=== PATIENT | male | born 1970 | race Caucasian/White ===

== ENCOUNTER 2017-05-27 07:31 | Observation (INO) | payer MEDICAID ==
[2017-05-27 08:11] LABS: Hematocrit 49.5 % (42.0-52.0); Hemoglobin 17.1 gm/dL (13.5-18.0); Mean Cell Volume 81.1 fl (78-100); Mean Corpuscular Hgb Conc 34.5 g/dl (32-36); Mean Platelet Volume 10.9 fl (6.0-9.5); Platelet Count 122 K/mm3 (150-450); White Blood Count 19.9 K/mm3 (4.0-10.5)
--- NOTE | 2017-05-27 08:15 | ERNOTE ---
Abdominal HPI - General Chief Complaint: Abdominal Pain Time Seen by Provider: 05/27/17 08:00 Source: patient Exam Limitations: no limitations - Immun/Allergies/Home Medications Immunizatons: IMMUNIZATION HX Immunizations Up to Date Yes History of Influenza Vaccine Yes Hx Pneumococcal Vaccination Yes Allergies/Adverse Reactions: Allergies Penicillins Allergy (Verified 05/27/17 07:45) venom-honey bee [bee venom (honey bee)] Allergy (Verified 05/27/17 07:45) Home Medications: HOME MEDICATIONS Metoprolol Succinate [Toprol Xl] 100 mg PO DAILY 07/20/15 [Last Taken Unknown] ALPRAZolam [Xanax] 0.5 mg PO BID 05/24/17 [Last Taken Unknown] Diclofenac Sodium 75 mg PO BID 05/24/17 [Last Taken Unknown] Acetaminophen [Tylenol] 1,000 mg PO Q6H PRN 05/27/17 [Last Taken Unknown] busPIRone HCL [Buspar] 10 mg PO BID 05/27/17 [Last Taken Unknown] - History of Present Illness Narrative: Patient presents right upper quadrant abdominal pain with nausea. She had the pain intermittently for some time and is beginning worse over the past week perhaps. He rates the pain as moderate in severity and perhaps 7 on a scale of 1-10. Timing: constant, intermittent Quality: moderate Activities at Onset: none Modifying Factors - (Worsens): Present: eating Associated Symptoms: Present: nausea Prior Abdominal Problems: Present: none Prior Treatment: Present: recently seen Review of Systems - Review of Systems Constitutional: Present: See HPI EYE: Present: no symptoms reported ENT: Present: no symptoms reported Respiratory: Present: no symptoms reported Cardiology: Present: no symptoms reported Gastrointestinal/Abdominal: Present: See HPI, nausea, abdominal pain Genitourinary: Present: no symptoms reported Musculoskeletal: Present: no symptoms reported Skin: Present: no symptoms reported Neurological: Present: no symptoms reported Endocrine: Present: no symptoms reported Hematologic/Lymphatic: Present: no symptoms reported Psych: Present: no symptoms reported - Patient's Past Medical History Patient History - Medical: ADHD, Anxiety, Other Patient History - Cardiac/Respiratory: No pertinent hx Patient History - Cancer: No Hx of Cancer Patient History - Surgical Procedures: Total Hip Replacement, Total Knee Replacement Patient History - Other: None - Family History Mother Family History - Medical: Family History - Cardiac/Respiratory: Hypertension Father Family History - Medical: Family History - Cardiac/Respiratory: History Unknown - Social History Living Situations: home Abuse History: No History of abuse Psych History: Hx of Anxiety Smoking Status: Current every day smoker Alcohol Use: occasionally Drug Use: none - Immunizations Immunizations Up to Date: Yes Hx Pneumococcal Vaccination: Yes History of Influenza Vaccine: Yes Physical Exam - Physical Exam General Appearance: Present: wd/wn, alert, moderate distress Head Exam: Present: normal inspection, no evidence of injury Eye Exam: Normal inspection: bilateral, PERRL: bilateral Ears, Nose, Throat: Present: normal ENT inspection, H, normal pharynx Neck: Present: normal inspection, nontender Respiratory: Present: no respiratory distress, normal breath sounds, no accessory muscle use, chest nontender, lungs clear Cardiovascular/Chest: Present: regular rate, rhythm, no murmur, normal peripheral pulses Gastrointestinal/Abdominal: Present: normal bowel sounds, nondistended, soft, no organomegaly, tenderness, Irby sign Rectal Exam: Present: deferred Back Exam: Present: normal inspection, normal range of motion Extremity Exam: Present: normal inspection, non-tender, no edema, normal range of motion Neurological Exam: Present: alert, oriented, normal mood/affect Skin Exam: Present: normal color, warm/dry Lymphatic Exam: Present: no adenopathy ED Progress - Results and Orders Patient's Lab Results:: I have reviewed the patient's lab results. - Vital Signs Patient's Vital Signs:: I have reviewed the patient's vital signs. Vital Signs: Vital Signs 05/27/17 05/27/17 07:39 08:13 Temperature 36.5 C Pulse Rate 101 H 72 Respiratory 16 16 Rate Blood Pressure 150/70 101/74 O2 Sat by Pulse 95 95 Oximetry - Progress/Reassessment Chief Complaint: Abdominal Pain Progress Note-Subjective: 05/27/17 08:21 Right upper quadrant abdominal ultrasound was done this morning and the results of that were reviewed by me as well. - Transfer of Care Additional Notes: Dr. Simpson was consulted and will come and examine the patient. Plan - Plan Plan: Patient be admitted to Dr. Simpson and he'll be started on IV fluids, nothing by mouth for likely surgery in the morning. Departure Clinical Impression: Cholelithiasis and acute cholecystitis without obstruction - Departure Disposition: Still a patient Condition: Fair Referrals: Viktor Wilkerson DO [Primary Care Provider] -
[2017-05-27] MEDS ORDERED: MORPHINE SULFATE 4 MG/ML SYRG IV ONE (08:19)
[2017-05-27] MEDS ORDERED: ONDANSETRON HCL/PF 2 MG/ML VIAL IV ONE (08:19)
[2017-05-27 08:25] LABS: Albumin * 2.8 gm/dl (3.4-5.0); Anion Gap 16.7 mmol/L (6.8-13.8); BUN/Creatinine Ratio 21.5 (9.0-21.6); Bilirubin, Total 1.5 mg/dL (0.0-1.1); Ca. Corrected For Albumin 9.4 mg/dL (8.4-10.2); Calcium * 8.8 mg/dL (7.9-10.9); Carbon Dioxide 24.2 mmol/L (24-32.6); Potassium 3.9 mmol/L (3.4-4.6); Total Protein 7.6 gm/dL (6.2-8.2)
[2017-05-27] MEDS ORDERED: MORPHINE SULFATE 4 MG/ML SYRG ONE (08:29)
[2017-05-27] MEDS ORDERED: ONDANSETRON HCL/PF 2 MG/ML VIAL ONE (08:29)
[2017-05-27] MEDS ORDERED: NORMAL SALINE 1,000 ML IV ONE ×4 (08:33→17:19)
[2017-05-27 08:36] LABS: Total Cells Counted 100
[2017-05-27 08:38] LABS: Basophil 1 % (0-1); Eosinophil 1 % (0-3); Lymphocyte 5 % (20-51); Monocyte 2 % (0-9); Neutrophil 91 % (42-75); Neutrophil # 18.1 K/mm3 (1.3-6.0); Platelet Estimate Normal (NORMAL); RBC Morphology Normal (NORMAL)
[2017-05-27] MEDS: NORMAL SALINE 1,000 ML IV ONE ×2 (08:45→11:03)
--- NOTE | 2017-05-27 09:59 | CONS ---
<Bandar Mosher - Last Filed: 05/27/17 10:05> HPI - History of Present Illness Allergies/Adverse Reactions: Allergies Penicillins Allergy (Verified 05/27/17 07:45) venom-honey bee [bee venom (honey bee)] Allergy (Verified 05/27/17 07:45) Home Medications: Home Medications Medication Instructions Recorded Last Taken Metoprolol Succinate [Toprol Xl] 100 mg PO DAILY 07/20/15 Unknown ALPRAZolam [Xanax] 0.5 mg PO BID 05/24/17 Unknown Diclofenac Sodium 75 mg PO BID 05/24/17 Unknown Acetaminophen [Tylenol] 1,000 mg PO Q6H PRN 05/27/17 Unknown busPIRone HCL [Buspar] 10 mg PO BID 05/27/17 Unknown Procedures APPLICATION OF SPLINT (01/22/01) EXTIRPATION OF MATTER FROM L EXT AUDITORY CANAL, VIA OPENING (03/20/17) EXTIRPATION OF MATTER FROM R EXT AUDITORY CANAL, VIA OPENING (03/20/17) INJECT STEROID (08/12/14) INJECTION INTO JOINT (08/12/14) Medications - Medications Current Medications: Current Medications Sodium Chloride (Sodium Chloride 0.9%) 1,000 mls @ 125 mls/hr IV .Q8H ONE Stop: 05/27/17 16:42 Last Admin: 05/27/17 08:45 Dose: 125 mls/hr Physical Examination - Exam Vital Signs: Vital Signs - Last Taken Temp 36.9 C 05/27/17 08:46 Pulse 82 05/27/17 09:34 Resp 16 05/27/17 09:34 BP 127/76 05/27/17 09:34 Pulse Ox 96 05/27/17 09:34 <Won Simpson - Last Filed: 05/27/17 10:55> HPI - General Date of Service: 05/27/17 Narrative: Pt presents to ER with several day history of upper abdominal pain. An ultrasound is consistent with acute cholecystitis. Positive muprhy's sign Source: patient, RN/MD, old records Exam Limitations: no limitations - Patient's Past Medical History Patient History - Medical: ADHD, Anxiety, Other Patient History - Cardiac/Respiratory: No pertinent hx Patient History - Cancer: No Hx of Cancer Patient History - Surgical Procedures: Total Hip Replacement, Total Knee Replacement Patient History - Other: None - Family History Mother Family History - Medical: Family History - Cardiac/Respiratory: Hypertension Father Family History - Medical: Family History - Cardiac/Respiratory: History Unknown - Social History Living Situations: home Abuse History: No History of abuse Psych History: Hx of Anxiety Smoking Status: Current every day smoker Alcohol Use: occasionally Drug Use: none - Immunizations Immunizations Up to Date: Yes Hx Pneumococcal Vaccination: Yes History of Influenza Vaccine: Yes Procedures APPLICATION OF SPLINT (01/22/01) EXTIRPATION OF MATTER FROM L EXT AUDITORY CANAL, VIA OPENING (03/20/17) EXTIRPATION OF MATTER FROM R EXT AUDITORY CANAL, VIA OPENING (03/20/17) INJECT STEROID (08/12/14) INJECTION INTO JOINT (08/12/14) Medications - Medications Current Medications: Current Medications Sodium Chloride (Sodium Chloride 0.9%) 1,000 mls @ 125 mls/hr IV .Q8H ONE Stop: 05/27/17 16:42 Last Admin: 05/27/17 08:45 Dose: 125 mls/hr Review of Systems - Review of Systems Abdominal: Present: Other - See HPI Physical Examination - Exam Vital Signs: Vital Signs - Last Taken Temp 36.9 C 05/27/17 08:46 Pulse 82 05/27/17 09:34 Resp 16 05/27/17 09:34 BP 127/76 05/27/17 09:34 Pulse Ox 96 05/27/17 09:34 O2 Oxygen Delivery Method Room Air Constitutional: Present: Alert, Oriented x3, Cooperative, Well developed, Well nourished, No distress, Obese ENT Exam: Present: normal ENT inspection Eye Exam: bilateral eye: normal inspection Neck: Present: full range of motion, supple, trachea midline. Absent: lymphadenopathy (R), lymphadenopathy (L) Cardiovascular/Chest: Present: regular rate, rhythm, no murmur Abdomen: Present: Normal bowel sounds, nondistended, tender - RUQ, positive Irby sign /Rectal: Present: Exam deferred Extremity: Present: normal inspection, slow capillary refill Skin Exam: Present: normal color Neurologic: Present: no motor/sensory deficits Eye contact: Present: cooperative, good eye contact - Results and Findings: Lab/Microbiology results last 24 hrs: Abnormal/Pending Laboratory Last 24 HRS 05/27/17 05/27/17 08:09 08:09 WBC 19.9 H D RBC 6.10 H RDW 18.0 H Plt Count 122 L MPV 10.9 H Neutrophils % (Manual) 91 H Lymphocytes % (Manual) 5 L Neutrophils # (Manual) 18.1 H Lymphocytes # (Manual) 1.0 L Basophils # (Manual) 0.2 H Anion Gap 16.7 H BUN 55 H D Creatinine 2.56 H D Est GFR (Non-Af Amer) 29 L D Total Bilirubin 1.5 H AST 55 H ALT 204 H Albumin 2.8 L - Assessments/Findings (1) Sepsis Diagnosis(s): A: Sepsis with multi-system failure. WBC 19K, acute renal failure, thrombocytopenia Possible choledocholithiasis with elevated bilirubin and common bile duct dilatation P: I recommend transfer to a higher level of care. Problem: Acute Qualifiers: Sepsis type: sepsis due to unspecified organism Qualified Code(s): A41.9 - Sepsis, unspecified organism (2) Thrombocytopenia Problem: Acute (3) Renal failure, acute Problem: Acute Qualifiers: Acute renal failure type: unspecified Qualified Code(s): N17.9 - Acute kidney failure, unspecified (4) Elevated bilirubin Problem: Acute (5) Choledocholithiasis with acute cholecystitis with obstruction Problem: Acute
[2017-05-27] MEDS ORDERED: LORazepam 2 MG/ML DISP.SYRIN ONE (10:45)
[2017-05-27] MEDS ORDERED: LORazepam 2 MG/ML DISP.SYRIN IV ONE (10:49)
[2017-05-27] MEDS ORDERED: NICOTINE 21 MG PATC TD ONE (11:01)
[2017-05-27] MEDS: NICOTINE 21 MG PATC TD SCH (11:02)
[2017-05-27 12:26] LABS: Urine Bilirubin 3 mg/dl (NEGATIVE); Urine Blood 50 /ul (NEGATIVE); Urine Ketone 5 mg/dL (NEGATIVE); Urine Nitrite Negative (NEGATIVE); Urine Protein 30 mg/dL (NEGATIVE); Urine Specific Gravity 1.025 SP.GR. (1.005-1.030); Urine Urobilinogen Normal (NORMAL); Urine pH 5.5 pH (5.0-7.0)
[2017-05-27 12:40] LABS: Urine Appearance Slightly Cloudy (CLEAR); Urine Color Dark Yellow; Urine RBC 0-5 /hpf (0-5); Urine WBC None Seen /hpf (0-5)
[2017-05-27 12:41] LABS: Urine Bacteria 1+; Urine Renal Epithelial Cell Few - 1+ /hpf
[2017-05-27] MEDS ORDERED: NORMAL SALINE 1,000 ML IV PRN (14:14)
[2017-05-27] MEDS ORDERED: ONDANSETRON HCL/PF 2 MG/ML VIAL IV PRN (14:14)
[2017-05-27] MEDS: HYDROmorphone HCL 2 MG/ML VIAL IV PRN ×2 (14:41→20:37)
[2017-05-27] MEDS ORDERED: LEVOFLOXACIN IN DEXTROSE 5 % 750 MG/150 ML BAG IV ONE (15:02)
--- NOTE | 2017-05-27 16:17 | HP ---
Chief Complaint - Chief Complaint Date of Service: 05/27/17 Time of Service: 16:09 Chief Complaint: abdominal pain and gallstones History of Present Illness: He started having epigastric and right upper quadrant pain suddenly on 2017. He was evaluated in the emergency room and discharged home having been scheduled for outpatient gallbladder ultrasound this morning. Those images demonstrated acute cholecystitis with cholelithiasis and he is admitted for gallbladder surgery. He has had several episodes of epigastric and right upper quadrant pain in the past but they resolved. Severe heartburn for the last several days, he is taking a lot of Pepto-Bismol and is not moving his bowels well. 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 Patient History - Cardiac/Respiratory: No pertinent hx, Hypertension Patient History - Cancer: No Hx of Cancer Patient History - Surgical Procedures: Total Hip Replacement, Total Knee Replacement Patient History - Other: None - Family History Mother Family History - Medical: Family History - Cardiac/Respiratory: Hypertension Father Family History - Medical: Family History - Cardiac/Respiratory: History Unknown - Social History Living Situations: alone Abuse History: No History of abuse Psych History: Hx of Anxiety Smoking Status: Current every day smoker Have you smoked in the past 12 months: Yes Patient requests Smoking Cessation Consult: No Initiate information on Smoking Cessation: Yes Alcohol Use: occasionally Drug Use: none - Immunizations Immunizations Up to Date: Yes Hx Pneumococcal Vaccination: Yes History of Influenza Vaccine: Yes Review Of Systems (GEN) - Review of Systems Generalized/Overall Review: Present: Chills EENTM: Present: No Symptoms Reported Respiratory: Present: No Symptoms Reported, Other - His abdomen hurts if he takes a deep breath coughs Cardiac: Absent: Chest Pain, Edema, Palpitations Abdominal: Present: Other - See HPI Genitourinary: Present: Nocturia - He gets up numerous times at night. Absent: Burning Musculoskeletal: Present: Other - He is happy with his hip replacement and can now walk upright Neurological: Present: No Symptoms Reported Skin: Present: No Symptoms Reported Immunizations: IMMUNIZATION HX Immunizations Up to Date Yes History of Influenza Vaccine Yes Hx Pneumococcal Vaccination Yes Allergies/Adverse Reactions: Allergies Allergy/AdvReac Type Severity Reaction Status Date / Time Penicillins Allergy Verified 05/27/17 13:58 venom-honey bee Allergy Verified 05/27/17 13:58 [bee venom (honey bee)] Home Medications: HOME MEDICATIONS Metoprolol Succinate [Toprol Xl] 100 mg PO DAILY 07/20/15 [Last Taken 05/26/17 09:00] ALPRAZolam [Xanax] 0.5 mg PO BID 05/24/17 [Last Taken Unknown] Diclofenac Sodium 75 mg PO BID 05/24/17 [Last Taken Unknown] Acetaminophen [Tylenol] 1,000 mg PO Q6H PRN 05/27/17 [Last Taken Unknown] Exam - Exam Vital Signs: Vital Signs - Last Taken Temp 36.9 C 05/27/17 14:55 Pulse 93 05/27/17 14:55 Resp 16 05/27/17 14:55 BP 164/87 05/27/17 14:55 Pulse Ox 97 05/27/17 14:55 Constitutional: Present: Alert, Oriented x3, Cooperative, No distress ENT Exam: Present: normal ENT inspection, other - sclera anicteric Eye Exam: bilateral eye: normal inspection Neck: Present: full range of motion, normal inspection, trachea midline Respiratory: Present: lungs clear, normal breath sounds, no respiratory distress , no accessory muscle use Cardiovascular/Chest: Present: normal peripheral pulses, regular rate, rhythm, no murmur Peripheral Pulses: dorsalis-pedis (R): 4+, dorsalis-pedis (L): 4+, radial (R): 4 +, radial (L): 4+ Abdomen: Present: other - Obese soft, hypoactive bowel sounds. No percussion tenderness. Tender in the epigastrium and right upper quadrant /Rectal: Present: Exam deferred Extremity: Present: normal range of motion, normal inspection, no pedal edema, no calf tenderness Skin Exam: Present: normal color, warm/dry Neurologic: Present: workers' compensation claims examiner II-XII nml as tested, normal cerebellar test, no motor/ sensory deficits, normal mood/affect, oriented x 3 Appearance: Present: appropriate appearance, appropriate insight Eye contact: Present: cooperative, good eye contact, normal speech Thoughts: Present: normal thought pattern Diagnostic Studies: Abnormal Lab Results 05/27/17 Range/Units 12:15 Urine Protein 30 H (NEGATIVE) mg/dL Urine Blood 50 H (NEGATIVE) /ul Urine Bilirubin 3 H (NEGATIVE) mg/dl Prot Sulfosalicylic Acd 2+ H (0) mg/dL Ur Renal Epithelial Cell Few - 1+ H (NONE) /hpf Urine Bacteria 1+ H (NONE) Laboratory Results WBC 19.9 K/mm3 (4.0-10.5) H D 05/27/17 08:09 RBC 6.10 M/mm3 (4.7-6.0) H 05/27/17 08:09 Hgb 17.1 gm/dL (13.5-18.0) 05/27/17 08:09 Hct 49.5 % (42.0-52.0) 05/27/17 08:09 MCV 81.1 fl (78-100) 05/27/17 08:09 MCH 28.0 pg (27-31) 05/27/17 08:09 MCHC 34.5 g/dl (32-36) 05/27/17 08:09 RDW 18.0 % (11.5-14.0) H 05/27/17 08:09 Plt Count 122 K/mm3 (150-450) L 05/27/17 08:09 MPV 10.9 fl (6.0-9.5) H 05/27/17 08:09 Neutrophils % (Manual) 91 % (42-75) H 05/27/17 08:09 Lymphocytes % (Manual) 5 % (20-51) L 05/27/17 08:09 Monocytes % (Manual) 2 % (0-9) 05/27/17 08:09 Eosinophils % (Manual) 1 % (0-3) 05/27/17 08:09 Basophils % (Manual) 1 % (0-1) 05/27/17 08:09 Neutrophils # (Manual) 18.1 K/mm3 (1.3-6.0) H 05/27/17 08:09 Lymphocytes # (Manual) 1.0 k/mm3 (1.5-3.5) L 05/27/17 08:09 Monocytes # (Manual) 0.4 k/mm3 (0.0-1.0) 05/27/17 08:09 Eosinophils # (Manual) 0.2 k/mm3 (0.0-0.7) 05/27/17 08:09 Basophils # (Manual) 0.2 k/mm3 (0.0-0.1) H 05/27/17 08:09 Platelet Estimate Normal (NORMAL) 05/27/17 08:09 RBC Morphology Normal (NORMAL) 05/27/17 08:09 Sodium 138 mmol/L (132-142) 05/27/17 08:09 Plasma Sodium 138 mmol/L (130-142) 05/27/17 08:09 Potassium 3.9 mmol/L (3.4-4.6) 05/27/17 08:09 Chloride 101 mmol/L (97-106) 05/27/17 08:09 Carbon Dioxide 24.2 mmol/L (24-32.6) 05/27/17 08:09 Anion Gap 16.7 mmol/L (6.8-13.8) H 05/27/17 08:09 BUN 55 mg/dL (6-23) H D 05/27/17 08:09 Creatinine 2.56 mg/dL (0.4-1.4) H D 05/27/17 08:09 Est GFR (Non-Af Amer) 29 mL/min (60-130) L D 05/27/17 08:09 BUN/Creatinine Ratio 21.5 (9.0-21.6) 05/27/17 08:09 Random Glucose 93 mg/dL (70-110) 05/27/17 08:09 Calcium 8.8 mg/dL (7.9-10.9) 05/27/17 08:09 Calcium Adj for Albumin 9.4 mg/dL (8.4-10.2) 05/27/17 08:09 Total Bilirubin 1.5 mg/dL (0.0-1.1) H 05/27/17 08:09 AST 55 U/L (0-48) H 05/27/17 08:09 ALT 204 U/L (19-67) H 05/27/17 08:09 Alkaline Phosphatase 150 U/L (50-170) 05/27/17 08:09 Total Protein 7.6 gm/dL (6.2-8.2) 05/27/17 08:09 Albumin 2.8 gm/dl (3.4-5.0) L 05/27/17 08:09 Lipase 370 U/L (73-393) 05/27/17 08:15 Urine Color Dark yellow 05/27/17 12:15 Urine Appearance Slightly cloudy (CLEAR) 05/27/17 12:15 Urine pH 5.5 pH (5.0-7.0) 05/27/17 12:15 Ur Specific [place] 1.025 SP.GR. (1.005-1.030) 05/27/17 12:15 Urine Protein 30 mg/dL (NEGATIVE) H 05/27/17 12:15 Urine Glucose (UA) Negative mg/dL (NEGATIVE) 05/27/17 12:15 Urine Ketones 5 mg/dL (NEGATIVE) 05/27/17 12:15 Urine Blood 50 /ul (NEGATIVE) H 05/27/17 12:15 Urine Nitrate Negative (NEGATIVE) 05/27/17 12:15 Urine Bilirubin 3 mg/dl (NEGATIVE) H 05/27/17 12:15 Urine Ictotest Negative (NEGATIVE) 05/27/17 12:15 Prot Sulfosalicylic Acd 2+ mg/dL (0) H 05/27/17 12:15 Urine Urobilinogen Normal EU/dl (NORMAL) 05/27/17 12:15 Ur Leukocyte Esterase Negative /ul (NEGATIVE) 05/27/17 12:15 Urine RBC 0-5 /hpf (0-5) 05/27/17 12:15 Urine WBC None seen /hpf (0-5) 05/27/17 12:15 Ur Epithelial Cells None seen /hpf (0-5) 05/27/17 12:15 Ur Renal Epithelial Cell Few - 1+ /hpf (NONE) H 05/27/17 12:15 Urine Bacteria 1+ (NONE) H 05/27/17 12:15 Urine Culture Comments No culture indicated 05/27/17 12:15 Assessment/Plan - Assessment/Plan (1) Cholelithiasis and acute cholecystitis without obstruction Assessment: A pamphlet on gallbladder disease and gallbladder surgery was reviewed with him and given to him. The risks and possible complications of cholecystectomy were outlined. After interactive discussion his questions were answered to his apparent satisfaction and he has given informed consent for laparoscopic ( possible open) cholecystectomy. Chlorhexidine wipes and IV Levaquin preop. SCDs. Problem: Acute
[2017-05-27] MEDS ORDERED: BUPIVACAINE HCL/EPINEPHRINE 50 ML VIAL IJ ONE ×2 (17:18)
[2017-05-27] MEDS ORDERED: RINGER'S SOLUTION,LACTATED 1,000 ML IV ONE (19:21)
[2017-05-27] MEDS ORDERED: MORPHINE SULFATE 2 MG/ML DISP.SYRIN IV PRN (19:53)
[2017-05-27] MEDS ORDERED: PANTOPRAZOLE SODIUM 40 MG in NORMAL SALINE 100 ML IV SCH (20:00)
[2017-05-27] MEDS: RINGER'S SOLUTION,LACTATED 1,000 ML IV PRN (20:38)
[2017-05-28] MEDS: oxyCODONE HCL/ACETAMINOPHEN 1 TAB TABLET PO PRN ×4 (00:31→13:37)
[2017-05-28] MEDS: RINGER'S SOLUTION,LACTATED 1,000 ML IV PRN (04:46)
[2017-05-28 06:24] LABS: Hematocrit 38.7 % (42.0-52.0); Hemoglobin 12.9 gm/dL (13.5-18.0); Mean Cell Volume 82.3 fl (78-100); Mean Corpuscular Hemoglobin 27.4 pg (27-31); Mean Corpuscular Hgb Conc 33.3 g/dl (32-36); Mean Platelet Volume 10.8 fl (6.0-9.5); Platelet Count 108 K/mm3 (150-450); Red Cell Distribution Width 17.3 % (11.5-14.0); White Blood Count 14.7 K/mm3 (4.0-10.5)
[2017-05-28 06:26] LABS: Total Cells Counted 100
[2017-05-28 06:41] LABS: Band 3 % (0-2.0); Lymphocyte 3 % (20-51); Neutrophil 94 % (42-75); Neutrophil # 13.8 K/mm3 (1.3-6.0); Platelet Estimate Normal (NORMAL)
[2017-05-28 06:42] LABS: RBC Morphology Normal (NORMAL)
[2017-05-28 06:45] LABS: Anion Gap 12.9 mmol/L (6.8-13.8); BUN/Creatinine Ratio 23.2 (9.0-21.6); Calcium * 8.1 mg/dL (7.9-10.9); Carbon Dioxide 24.8 mmol/L (24-32.6); Estimated Creat Clear 70.4; Potassium 4.7 mmol/L (3.4-4.6)
[2017-05-28] MEDS ORDERED: NORMAL SALINE 1,000 ML IV PRN (08:17)
--- NOTE | 2017-05-28 08:46 | PN ---
Dictated Progress Note - Date and Time Seen: Date: 05/28/17 Time: 08:45 - Progress Note Narrative: Vital Signs - Last Taken Temp 37 C 05/28/17 06:34 Pulse 95 05/28/17 07:21 Resp 16 05/28/17 07:21 BP 142/105 05/28/17 07:21 Pulse Ox 92 05/28/17 07:21 Abnormal/Pending Laboratory Last 24 HRS 05/28/17 05/28/17 05/27/17 06:17 05:08 12:15 WBC 14.7 H D Hgb 12.9 L Hct 38.7 L RDW 17.3 H Plt Count 108 L MPV 10.8 H Neutrophils % (Manual) 94 H Band Neuts % (Manual) 3 H Lymphocytes % (Manual) 3 L Neutrophils # (Manual) 13.8 H Lymphocytes # (Manual) 0.4 L Potassium 4.7 H D BUN 36 H Creatinine 1.55 H D Est GFR (Non-Af Amer) 51 L D BUN/Creatinine Ratio 23.2 H Urine Protein 30 H Urine Blood 50 H Urine Bilirubin 3 H Prot Sulfosalicylic Acd 2+ H Ur Renal Epithelial Cell Few - 1+ H Urine Bacteria 1+ H VS normal. Only discomfort is incisions and sore throat. Dressings dry. Need to encourage OOB and will advance diet
[2017-05-28] MEDS ORDERED: METOPROLOL SUCCINATE 100 MG TABLET.SA PO SCH (09:00)
[2017-05-28] MEDS: NICOTINE 21 MG PATC TD SCH (12:42)
[2017-05-28] MEDS ORDERED: SENNOSIDES/DOCUSATE SODIUM 1 TAB TABLET PO SCH (13:30)
--- NOTE | 2017-05-28 13:31 | OR ---
Operative Report - Dictated Report Narrative: DATE OF OPERATION: 05/27/2017 PREOPERATIVE DIAGNOSIS: Acute cholecystitis and cholelithiasis POSTOPERATIVE DIAGNOSIS: Severe acute cholecystitis and cholelithiasis ( pathology pending). Small umbilical hernia OPERATION: Laparoscopic cholecystectomy with incidental repair of umbilical hernia SURGEON: NIKO Harvey MD ANESTHESIA Gen. mesfin Keller CRNA INDICATIONS FOR PROCEDURE: The patient is a 46-year-old male who developed acute onset epigastric and right upper quadrant pain on 05/24/2017. He was evaluated in the ER and scheduled for outpatient ultrasound today which revealed acute cholecystitis with cholelithiasis. FINDINGS: Severe acute cholecystitis with exudate. Cholelithiasis. Very difficult operation due to patient's size and severity of inflammation NARRATIVE OF PROCEDURE: The patient was identified preoperatively. Prior to the administration of anesthetic a multidisciplinary timeout observed. With the patient in the supine position, SCDs were placed, 750 mg of IV Levaquin administered, and general endotracheal anesthetic administered. The patient's abdomen was prepped with Betadine solution and a generous operating field outlined with 4 sterile towels. The remainder the patient was covered with a sterile disposable drape. A supraumbilical skin incision was made. Dissection was carried along the umbilical stalk until the fascia of the linea alba was encountered. There was a 1 cm fascial defect with herniation of properitoneal fat. This defect was extended slightly with electrocautery. The peritoneum was then elevated and incised to allow entry into the abdomen under direct vision. A Hussan cannula was placed, and the abdomen insufflated with CO2. The laparoscopic camera was introduced and the abdomen briefly explored. Those portions of the liver visualized appeared grossly normal. The remainder of the abdominal contents were obscured by normal appearing omentum. The gallbladder was not immediately visible. Next under direct vision 3 additional working ports were inserted through separate skin incisions, one in the subxiphoid, one in the right upper quadrant, and one in the right flank. There were omental adhesions to the surface of the right lobe of the liver in the expected location of the gallbladder apex. These were carefully lysed under direct vision exposing the apex of the gallbladder which was seen to be acutely inflamed. Using careful additional electrocautery dissection, omental adhesions were developed sufficient to expose the apex of the gallbladder. The gallbladder was then decompressed with a needle and approximately 60 mL of bile was removed. The puncture site was then grasped. The apex of the gallbladder was retracted cephalad. There was exudate along the lateral wall of the gallbladder and extensive adhesions to the neck and body. Hydrostatic, blunt, and electrocautery dissection was then used to develop the gallbladder to the neck. The neck could then be grasped for additional retraction. The cystic duct was dissected free for a sufficient distance for confident identification. It was multiply clipped and divided. The cystic artery was identified doubly clipped and divided. The gallbladder was then removed from the liver bed by retrograde electrocautery dissection. There was severe inflammation in the liver bed making dissection difficult and very time consuming. Prior to severing the last attachments of the gallbladder the liver bed was inspected and found to be hemostatic with no evidence of bile leak. The previously placed clips were seen to be intact. The right upper quadrant was irrigated with saline and suctioned clean. The last attachments of the gallbladder were divided. It was placed in an Endobag and parked in the right upper quadrant. The smaller working ports were withdrawn under direct vision to ensure entry site hemostasis. The gallbladder was removed in conjunction with the Hussan cannula. The pneumoperitoneum was allowed to escape, and after receiving a correct sponge needle and instrument count attention was turned to closing the abdomen. The fascia and peritoneum at the umbilicus were approximated with interrupted sutures of #1 Vicryl. Skin incisions were approximated with interrupted vertical mattress sutures of 4-0 nylon. The operative sites were washed and dried. Dressings of Bactroban ointment and large Band-Aids were applied to the small port sites. The umbilical incision was dressed with Bactroban ointment, 2 x 2, large Band-Aid and Medipore tape. The operative procedure was terminated at this point. The patient tolerated the anesthetic and procedure well without complication. There was no measurable blood loss. The gallbladder was submitted to pathology. 0.5% Marcaine was used for local anesthetic infiltration. The patient was transferred to the recovery room awake , extubated, and in stable condition. Reviewed and electronically signed
--- NOTE | 2017-05-28 17:49 | DS ---
(1) Cholelithiasis and acute cholecystitis without obstruction Problem: Resolved Description of Stay: Underwent laparoscopic cholecystectomy for severe acute cholecystitis and cholelithiasis. Chlorhexidine wipes and IV Levoquin. VTE prophylaxis with SCD's and early ambulation. Renal function improved promptly with IVF's VS remained normal. Tolerated advanced diet. Dressings dry. Ambulated independently. Pain controlled with po Percocet. Home, instructions given. Phone #'s to call for questions or concerns. To call office in AM for 1 week f/u appointment Procedures Performed: see notes below - laparoscopic cholecystectomy Discharge Location: Home Disposition: Home self-care Condition: Good Discharge Activity: Activity as tolerated, No Lifting Discharge Diet: General/regular food Referrals: Viktor Wilkerson DO [Primary Care Provider] - Problem Oriented Discharge Instructions to Patient/Family: Laparoscopic Cholecystectomy, Care After Complete Home Medications List: Complete Home Medication List: Metoprolol Succinate [Toprol Xl] 100 mg PO DAILY 07/20/15 ALPRAZolam [Xanax] 0.5 mg PO BID 05/24/17 Diclofenac Sodium 75 mg PO BID 05/24/17 Acetaminophen [Tylenol] 1,000 mg PO Q6H PRN 05/27/17
[2017-05-28 18:20] VITALS: BP 149/71
[2017-05-28] MEDS ORDERED: PANTOPRAZOLE SODIUM 40 MG in NORMAL SALINE 50 ML IV SCH (20:00)
== END 2017-05-28 19:10 | disposition home or self-care (01) ==
LOC: ER 07:31 → MS 09:27 → INTOOBSV 09:27
PROVIDERS: ADMIT Family Medicine; ATTEND Family Medicine
PROC: 0FT44ZZ Resection of Gallbladder, Percutaneous Endoscopic Approach (ICD-10-PCS; principal; 2017-05-27)
PROC: 0WQF0ZZ Repair Abdominal Wall, Open Approach (ICD-10-PCS; 2017-05-27)
DX: K80.00 Calculus of gallbladder with acute cholecystitis without obstruction (principal); K42.9 Umbilical hernia without obstruction or gangrene; N17.9 Acute kidney failure, unspecified; D69.6 Thrombocytopenia, unspecified; E66.9 Obesity, unspecified; Z68.39 Body mass index [BMI] 39.0-39.9, adult; Z87.891 Personal history of nicotine dependence; F90.9 Attention-deficit hyperactivity disorder, unspecified type
CPT/HCPCS: 36415; 47562; 49585; 80048; 80053; 81001; 83690; 85007; 85025; 88304; 96365; 96367; 96375; 96376; 99285; G0378; J2405